=== PATIENT | female | born 1975 | race Caucasian/White ===

== ENCOUNTER 2018-07-06 09:13 | Outpatient (CLI) | payer OTHER ==
[2018-07-06] MEDS ORDERED: [UNRECOGNIZED DRUG - OTHER] PO (10:46)
== END 2018-07-06 23:59 | disposition home or self-care (01) ==
LOC: STAR 09:13 → MERGE 09:30 → STAR 23:59
PROVIDERS: ATTEND Student in an Organized Health Care Education/Training Program
DX: Z02.9 Encounter for administrative examinations, unspecified (principal)

== ENCOUNTER 2018-07-17 09:42 | Day surgery (SDC) | payer OTHER ==
[~2018-07-17] VITALS: Ht 166.4 cm; Wt 69.7 kg
[~2018-07-17 09:42] MED LIST: [UNRECOGNIZED DRUG - OTHER] PO
[2018-07-17] MEDS ORDERED: LACTATED RINGERS 1,000 ML IV SCH (09:47)
[2018-07-17 10:10] LABS: HCG UR SG 1.026 (1.003-1.030)
[2018-07-17] MEDS ORDERED: FENTANYL PF 250 MCG/5ML ONE (10:36)
[2018-07-17] MEDS ORDERED: MIDAZOLAM 1 MG/ML, 2ML ONE (10:36)
[2018-07-17] MEDS ORDERED: DEXAMETHASONE 4 MG/ML, 1ML ONE (10:39)
[2018-07-17] MEDS ORDERED: NEOSTIGMINE 1 MG/ML, 10ML ONE (10:39)
[2018-07-17] MEDS ORDERED: ROCURONIUM 10MG/ML,5ML ONE (10:39)
[2018-07-17] MEDS ORDERED: ONDANSETRON 2MG/ML, 2ML ONE (10:39)
[2018-07-17] MEDS ORDERED: SUCCINYLCHOLINE 20 MG/ML, 10ML ONE (10:39)
[2018-07-17] MEDS ORDERED: PROPOFOL 10 MG/ML, 20ML ONE (10:39)
[2018-07-17] MEDS ORDERED: CEFAZOLIN 1,000 MG ONE (10:39)
[2018-07-17] MEDS ORDERED: GLYCOPYRROLATE 0.2MG/1ML, 5ML ONE (10:39)
[2018-07-17] MEDS ORDERED: DIAZEPAM 5 MG TABLET PO ONE (11:00)
[2018-07-17] MEDS ORDERED: ACETAMINOPHEN 500 MG TABLET PO ONE (11:00)
[2018-07-17] MEDS ORDERED: SCOPOLAMINE PATCH, 1.5MG PATCH.TD72 TD ONE (11:00)
[2018-07-17] MEDS ORDERED: BUPIVACAINE/PF 0.25% ONE (11:48)
[2018-07-17] MEDS ORDERED: FLUORESCEIN SODIUM 500 MG/5 ML ONE (11:48)
[2018-07-17] MEDS ORDERED: EPINEPHRINE 1 MG/ML, 1ML ONE (11:49)
[2018-07-17] MEDS ORDERED: LIDOCAINE PF 2%, 5ML ONE (12:32)
[2018-07-17] MEDS ORDERED: HYDROmorphone 2 MG/ML, 1ML IVPush PRN (13:30)
[2018-07-17] MEDS ORDERED: LORazepam 2 MG/ML, 1ML IVPush PRN (13:30)
[2018-07-17] MEDS ORDERED: MEPERIDINE/PF 25MG/0.5ML IVPush PRN (13:30)
[2018-07-17] MEDS ORDERED: PROMETHAZINE 25 MG/ML, 1ML IV PRN (13:30)
[2018-07-17] MEDS ORDERED: ONDANSETRON ODT 8 MG PO PRN (13:30)
[2018-07-17] MEDS ORDERED: ONDANSETRON 2MG/ML, 2ML IV PRN (13:30)
[2018-07-17] MEDS ORDERED: OXYcodone 5 MG/5 ML ORAL.SOL UDC PO PRN (13:30)
[2018-07-17] MEDS ORDERED: FENTANYL PF 100 MCG/2ML IV PRN (13:30)
[2018-07-17] MEDS ORDERED: FENTANYL PF 100 MCG/2ML ONE (13:59)
[2018-07-17] MEDS ORDERED: SUGAMMADEX 200 MG/2 ML IVPush ONE (14:30)
[2018-07-17] MEDS ORDERED: OXYcodone 5 MG/5 ML ORAL.SOL UDC ONE (15:17)
[2018-07-17] MEDS ORDERED: MEPERIDINE/PF 25MG/ML,1ML ONE (15:46)
[2018-07-17] MEDS ORDERED: PROMETHAZINE 25 MG SUPP PR ONE (18:10)
[2018-07-17] MEDS ORDERED: PROMETHAZINE 25 MG SUPP PR PRN (18:30)
== END 2018-07-17 18:50 | disposition home or self-care (01) ==
LOC: OUT 09:42 → MERGE 12:00 → OUT 18:50
PROVIDERS: ATTEND Student in an Organized Health Care Education/Training Program
DX: D25.1 Intramural leiomyoma of uterus (principal); N93.9 Abnormal uterine and vaginal bleeding, unspecified; L91.8 Other hypertrophic disorders of the skin; Z98.890 Other specified postprocedural states; Z88.8 Allergy status to other drugs, medicaments and biological substances
CPT/HCPCS: 11200; 58552; 81025; 88304; 88307; J0171; J0330; J0690; J1100; J2175; J2250; J2405; J2704; J2710; J3010; J3490; J7120